=== PATIENT | female | born 2000 | race Caucasian/White ===

== ENCOUNTER 2023-10-04 22:36 | Emergency (ER) | payer OTHER ==
[2023-10-05 00:41] LABS: Bilirubin Neg (Negative); Blood, Urine Negative (Negative); Clarity Clear (Clear); Glucose, Urine (Dipstick) Normal (Negative); Ketone, Urine Negative (Negative); Leukocyte Negative (Negative); Nitrite Negative (Negative); Protein, Urine (Dipstick) Negative (Neg-Trace); Urobilinogen Normal mg/dL (Less than 2)
[2023-10-05 00:42] LABS: Pregnancy Test - Urine (BHCG) POSITIVE (Negative)
[2023-10-05 00:43] LABS: Pregu Control Background? CLEAR/WHITE (CLR/WHITE); Pregu Control Bar Appear? YES (CONTROL BAR)
[2023-10-05 00:51] LABS: Bacteria/HPF None Seen HPF (None Seen); CAUTI Indications for Culture Pregnancy; RBC/HPF None Seen HPF (0-3); Squamous Epithelial 0-3 HPF (0-3); WBC/HPF None Seen HPF (0-3)
[2023-10-05 00:54] LABS: Urine Culture Reflex Yes Yes
== END 2023-10-05 02:05 | disposition home or self-care (01) ==
LOC: CSHERS 22:36
DX: Z34.91 Encounter for supervision of normal pregnancy, unspecified, first trimester (principal); Z3A.01 Less than 8 weeks gestation of pregnancy
CPT/HCPCS: 76856; 81001; 81025; 84702; 87086

== ENCOUNTER 2025-04-12 14:42 | Emergency (ER) | payer OTHER, SELFPAY | END 2025-04-12 15:40 | disposition home or self-care (01) | LOC: CSHERS 14:42 | DX: S93.601A Unspecified sprain of right foot, initial encounter (principal); L30.9 Dermatitis, unspecified | CPT/HCPCS: 99283 ==